=== PATIENT | male | born 1945 | race Caucasian/White ===

== ENCOUNTER 2021-01-25 18:46 | Emergency (ER) | payer MEDICARE, BC ==
[2021-01-25] MEDS ORDERED: Rocuronium 100 MG/10 ML MDV IVPUSH ONE (18:47)
[2021-01-25] MEDS ORDERED: Propofol 200 MG/20 ML SDV IV ONE (18:47)
[2021-01-25] MEDS ORDERED: Etomidate 2 MG/ML 20 ML SDV IVPUSH ONE (18:47)
--- NOTE | 2021-01-25 18:55 | EDM.PDOC ---
ED HPI GENERAL MEDICAL PROBLEM - General Chief Complaint: General Stated Complaint: AMBULANCE Time Seen by Provider: 01/25/21 18:50 Source of Information: Reports: Patient History Limitations: Reports: No Limitations - History of Present Illness INITIAL COMMENTS - FREE TEXT/NARRATIVE: 75 y/o M brought in by ems for episode of back pn by his kidneys, nausea, feeling flushed. Pt felt the urge to deficate and the had a bowel movement in his pants. Afterwards pt had immediate relief in symptoms. Prior to the incident the pt was eating dinner with his family. No trauma, denies fever, cough, chills, cp, abd pn, pelvic pn, extremity pn. Pt currently complaint free Abdominal Pain Score (Numeric/FACES): 6 - Related Data Allergies Allergy/AdvReac Type Severity Reaction Status Date / Time Penicillins Allergy Rash Verified 01/25/21 19:51 Home Meds: Home Meds . [Unable to Verify Home Med List] 06/18/14 [History] ED ROS GENERAL - Review of Systems Review Of Systems: Comprehensive ROS is negative, except as noted in HPI. ED EXAM, GENERAL - Physical Exam Exam: See Below Exam Limited By: No Limitations General Appearance: Alert, No Apparent Distress Nose: Normal Inspection, Normal Mucosa, No Blood Throat/Mouth: Normal Inspection, Normal Lips, Normal Teeth, Normal Gums, Normal Oropharynx, Normal Voice, No Airway Compromise Head: Atraumatic, Normocephalic Neck: Normal Inspection, Supple, Non-Tender, Full Range of Motion Respiratory/Chest: No Respiratory Distress, Lungs Clear, Normal Breath Sounds, No Accessory Muscle Use, Chest Non-Tender Cardiovascular: Normal Peripheral Pulses, Regular Rate, Rhythm, No Edema, No Gallop, No JVD, No Murmur, No Rub GI/Abdominal: Normal Bowel Sounds, Soft, Non-Tender, No Organomegaly, No Distention, No Abnormal Bruit, No Mass (Male) Exam: No Hernia, Normal Inspection, Normal Prostate, Circumcised Rectal (Males) Exam: Deferred Back Exam: Normal Inspection, Full Range of Motion Extremities: Normal Inspection, Normal Range of Motion, Non-Tender, Normal Capillary Refill, No Pedal Edema Neurological: Alert, Oriented, CN II-XII Intact, Normal Cognition, Normal Gait, Normal Reflexes, No Motor/Sensory Deficits Skin Exam: Warm, Dry, Intact #1 Interpretation EKG Date: 01/25/21 Time: 19:29 Rhythm: NSR [place]: Normal P-Wave: Present QRS: Other (ivcd) ST-T: Normal QT: Normal Course - Vital Signs Last Recorded V/S: Last Vital Signs Temp 96.9 F 01/25/21 18:50 Pulse 64 01/25/21 18:50 Resp 22 H 01/25/21 18:50 BP 140/86 01/25/21 18:50 Pulse Ox 97 01/25/21 18:50 - Orders/Labs/Meds Orders: Active Orders 24 hr Category Date Time Status Abdomen Pelvis w Cont [CT] Urgent Exams 01/25/21 19:46 Ordered UA RFX NYASIA AND CULT IF INDIC [URIN] Stat Lab 01/25/21 21:00 Ordered Potassium Chloride [KCL in Water 20 MEQ/100 ML] 20 meq Med 01/25/21 20:17 Active Premix Bag 1 bag IV ONETIME Medication Orders Potassium Chloride 20 meq/ (Premix) 100 mls @ 50 mls/hr IV ONETIME ONE Stop: 01/25/21 22:16 Last Admin: 01/25/21 20:47 Dose: 50 mls/hr Documented by: [email or web address] Labs: Laboratory Tests 01/25/21 01/25/21 01/25/21 Range/Units 19:28 19:28 19:28 WBC 10.1 H (5.0-10.0) 10^3/uL RBC 4.51 L (4.6-6.2) 10^6/uL Hgb 14.8 (14.0-18.0) g/dL Hct 41.5 (40.0-54.0) % MCV 92.0 (80-100) fL MCH 32.8 (27.0-34.0) pg MCHC 35.7 H (33.0-35.0) g/dL Plt Count 258 (150-450) 10^3/uL Neut % (Auto) 61.9 (42.2-75.2) % Lymph % (Auto) 22.6 (20.5-50.1) % [place] % (Auto) 12.6 H (2-8) % Eos % (Auto) 2.4 (1.0-3.0) % Baso % (Auto) 0.5 (0.0-1.0) % Sodium 132 L (136-145) mmol/L Potassium 2.8 L (3.5-5.1) mmol/L Chloride 94 L (98-107) mmol/L Carbon Dioxide 23 (21-32) mmol/L Anion Gap 17.8 H (7-13) mEq/L BUN 13 (7-18) mg/dL Creatinine 1.36 H (0.70-1.30) mg/dL Est Cr Clr Drug Dosing 48.45 mL/min Estimated GFR (MDRD) 51 BUN/Creatinine Ratio 9.6 (No establ ref range) Glucose 134 H (70-99) mg/dL Lactic Acid (0.4-2.0) mmol/L Calcium 9.0 (8.5-10.1) mg/dL Magnesium 1.4 L (1.8-2.4) mg/dL Total Bilirubin 0.5 (0.2-1.0) mg/dL AST 19 (15-37) U/L ALT 28 (16-63) U/L Alkaline Phosphatase 113 (46-116) U/L Troponin I High Sens (<=76) pg/mL C-Reactive Protein < 0.2 (0.0-0.9) mg/dL B-Natriuretic Peptide 111 H (0-100) pg/ml Total Protein 7.9 (6.4-8.2) g/dL Albumin 4.3 (3.4-5.0) g/dL Globulin 3.6 Albumin/Globulin Ratio 1.2 Amylase (25-115) U/L Lipase (73-393) U/L TSH, Ultra Sensitive 2.23 (0.36-3.74) uIU/mL SARS-CoV-2 RNA (JAGDISH) (NEGATIVE) 01/25/21 01/25/21 01/25/21 Range/Units 19:28 19:28 19:28 WBC (5.0-10.0) 10^3/uL RBC (4.6-6.2) 10^6/uL Hgb (14.0-18.0) g/dL Hct (40.0-54.0) % MCV (80-100) fL MCH (27.0-34.0) pg MCHC (33.0-35.0) g/dL Plt Count (150-450) 10^3/uL Neut % (Auto) (42.2-75.2) % Lymph % (Auto) (20.5-50.1) % [place] % (Auto) (2-8) % Eos % (Auto) (1.0-3.0) % Baso % (Auto) (0.0-1.0) % Sodium (136-145) mmol/L Potassium (3.5-5.1) mmol/L Chloride (98-107) mmol/L Carbon Dioxide (21-32) mmol/L Anion Gap (7-13) mEq/L BUN (7-18) mg/dL Creatinine (0.70-1.30) mg/dL Est Cr Clr Drug Dosing mL/min Estimated GFR (MDRD) BUN/Creatinine Ratio (No establ ref range) Glucose (70-99) mg/dL Lactic Acid 2.0 (0.4-2.0) mmol/L Calcium (8.5-10.1) mg/dL Magnesium (1.8-2.4) mg/dL Total Bilirubin (0.2-1.0) mg/dL AST (15-37) U/L ALT (16-63) U/L Alkaline Phosphatase (46-116) U/L Troponin I High Sens 9 (<=76) pg/mL C-Reactive Protein (0.0-0.9) mg/dL B-Natriuretic Peptide (0-100) pg/ml Total Protein (6.4-8.2) g/dL Albumin (3.4-5.0) g/dL Globulin Albumin/Globulin Ratio Amylase 54 (25-115) U/L Lipase 278 (73-393) U/L TSH, Ultra Sensitive (0.36-3.74) uIU/mL SARS-CoV-2 RNA (JAGDISH) (NEGATIVE) 01/25/21 Range/Units 19:29 WBC (5.0-10.0) 10^3/uL RBC (4.6-6.2) 10^6/uL Hgb (14.0-18.0) g/dL Hct (40.0-54.0) % MCV (80-100) fL MCH (27.0-34.0) pg MCHC (33.0-35.0) g/dL Plt Count (150-450) 10^3/uL Neut % (Auto) (42.2-75.2) % Lymph % (Auto) (20.5-50.1) % [place] % (Auto) (2-8) % Eos % (Auto) (1.0-3.0) % Baso % (Auto) (0.0-1.0) % Sodium (136-145) mmol/L Potassium (3.5-5.1) mmol/L Chloride (98-107) mmol/L Carbon Dioxide (21-32) mmol/L Anion Gap (7-13) mEq/L BUN (7-18) mg/dL Creatinine (0.70-1.30) mg/dL Est Cr Clr Drug Dosing mL/min Estimated GFR (MDRD) BUN/Creatinine Ratio (No establ ref range) Glucose (70-99) mg/dL Lactic Acid (0.4-2.0) mmol/L Calcium (8.5-10.1) mg/dL Magnesium (1.8-2.4) mg/dL Total Bilirubin (0.2-1.0) mg/dL AST (15-37) U/L ALT (16-63) U/L Alkaline Phosphatase (46-116) U/L Troponin I High Sens (<=76) pg/mL C-Reactive Protein (0.0-0.9) mg/dL B-Natriuretic Peptide (0-100) pg/ml Total Protein (6.4-8.2) g/dL Albumin (3.4-5.0) g/dL Globulin Albumin/Globulin Ratio Amylase (25-115) U/L Lipase (73-393) U/L TSH, Ultra Sensitive (0.36-3.74) uIU/mL SARS-CoV-2 RNA (JAGDISH) Negative (NEGATIVE) Meds: Medications Generic Name Dose Route Start Last Admin Trade Name Freq PRN Reason Stop Dose Admin Potassium Chloride 20 meq/ 100 mls @ 50 mls/hr 01/25/21 20:17 01/25/21 20:47 Premix IV 01/25/21 22:16 50 mls/hr ONETIME ONE Administration Discontinued Medications Generic Name Dose Route Start Last Admin Trade Name Freq PRN Reason Stop Dose Admin Sodium Chloride 1,000 mls @ 999 mls/hr 01/25/21 19:22 01/25/21 19:30 Normal Saline IV 01/25/21 20:22 999 mls/hr .BOLUS ONE Administration Iopamidol 100 ml 01/25/21 19:47 Iopamidol 612 Mg/Ml 100 Ml Bottle IVPUSH 01/25/21 19:48 ONETIME ONE Lorazepam Confirm 01/25/21 19:43 01/25/21 20:48 Lorazepam 2 Mg/Ml Sdv Administered 01/25/21 19:44 2 mg Dose Administration 2 mg .ROUTE .STK-MED ONE Metoclopramide HCl 10 mg 01/25/21 19:21 01/25/21 19:32 Metoclopramide 10 Mg/2 Ml Sdv IVPUSH 01/25/21 19:22 10 mg ONETIME ONE Administration Ondansetron HCl 4 mg 01/25/21 19:12 01/25/21 19:36 Ondansetron 4 Mg/2 Ml Sdv IVPUSH 01/25/21 19:13 4 mg ONETIME ONE Administration - Re-Assessments/Exams Free Text/Narrative Re-Assessment/Exam: 01/25/21 20:30 Pt had a 3-5 min seizure tonic clonic activity shortly after arriving here. He became cyanotic and developed sonorous resp. The seizure ceased after 2mg ativan IV. The pt continued to have sonorous resp and not maintain his airway for 15 min after the seizure. The pt also developed a leftward gaze with pinpoint pupils. I intubated the pt 8.0 tube 24 at the teeth. RSI meds included 30mg etomidate and 90mg Rocuronium. Tube placement was confirmed via etco2 and cxr and positive lung sounds with no epigastric sounds. 01/25/21 20:34 Transfer initiated around 2000hrs No beds at [facility], [facility] 01/25/21 21:[address] Pham resident services director. He accepted the pt for transfer and will continue his care at his facility. Family is now with the pt and have been notified of all findings and pending transfer. Departure - Departure Time of Disposition: 21:26 Disposition: DC/Tfer to Acute Hospital 02 Condition: Serious Clinical Impression: Seizure, Glioblastoma - Discharge Information *PRESCRIPTION DRUG MONITORING PROGRAM REVIEWED*: Not Applicable *COPY OF PRESCRIPTION DRUG MONITORING REPORT IN PATIENT BRIDGETT: Not Applicable Forms: ED Department Discharge, Interfacility Transfer INDERJIT Sepsis Event Note (ED) - Focused Exam Vital Signs: Vital Signs Temp Pulse Pulse Resp BP Pulse Ox 01/25/21 18:50 96.9 F 64 22 H 140/86 97 01/25/21 18:39 98 F 81 18 161/68 H 95 - My Orders Last 24 Hours: My Active Orders 01/25/21 19:46 Abdomen Pelvis w Cont [CT] Urgent 01/25/21 20:17 Potassium Chloride [KCL in Water 20 MEQ/100 ML] 20 meq Premix Bag 1 bag IV ONETIME - Assessment/Plan Last 24 Hours: My Active Orders 01/25/21 19:46 Abdomen Pelvis w Cont [CT] Urgent 01/25/21 20:17 Potassium Chloride [KCL in Water 20 MEQ/100 ML] 20 meq Premix Bag 1 bag IV ONETIME
[2021-01-25] MEDS ORDERED: Ondansetron 4 MG/2 ML SDV IVPUSH ONE (19:12)
[2021-01-25] MEDS ORDERED: Metoclopramide 10 MG/2 ML SDV IVPUSH ONE (19:21)
[2021-01-25] MEDS ORDERED: Sodium Chloride 0.9% 1,000 ML IV ONE (19:22)
[2021-01-25 19:27] VITALS: BP 140/86; PULSE 64
[2021-01-25] MEDS ORDERED: LORazepam 2 MG/ML SDV ONE (19:43)
[2021-01-25] MEDS ORDERED: Iopamidol 612 MG/ML 100 ML Bottle IVPUSH ONE (19:47)
[2021-01-25 20:08] LABS: ANION GAP 17.8 mEq/L (7-13); CHLORIDE,CL 94 mmol/L (98-107); SODIUM,NA 132 mmol/L (136-145)
[2021-01-25] MEDS ORDERED: Potassium Chloride 20 MEQ in Premix Bag 1 BAG IV ONE (20:17)
--- NOTE | 2021-01-25 20:49 | CT ---
PROCEDURE INFORMATION: Exam: CT Head Without Contrast Exam date and time: 01/25/2021 8:35 PM Age: 75 years old Clinical indication: Other: Seizure; Prior surgery; Surgery date: 6+ months; Patient HX: HX brain CA; Additional info: Seizure, burning R lower abd pn TECHNIQUE: Imaging protocol: Computed tomography of the head without contrast. Radiation optimization: All CT scans at this facility use at least one of these dose optimization techniques: automated exposure control; mA and/or kV adjustment per patient size (includes targeted exams where dose is matched to clinical indication); or iterative reconstruction. Other technique: STROKE PROTOCOL was implemented. 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 Age-related atrophy and chronic white matter ischemic changes, with no evidence of an acute intracranial abnormality. No hemorrhage, mass effect or midline shift. Cerebral ventricles: The ventricular system demonstrates mild diffuse compensatory enlargement. Paranasal sinuses: Visualized sinuses are unremarkable. No fluid levels. Mastoid air cells: Visualized mastoid air cells are well aerated. Bones/joints: Status post prior right occipital craniotomy. Soft tissues: No acute changes IMPRESSION: 1. 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 2. Age-related atrophy and chronic white matter ischemic changes, with no evidence of an acute intracranial abnormality. 3. No hemorrhage, mass effect or midline shift. ASSESSMENT: ASPECTS ([place] Stroke Program Early CT Score) is 10.
--- NOTE | 2021-01-25 20:51 | CR ---
PROCEDURE INFORMATION: Exam: XR Chest Exam date and time: 01/25/2021 8:17 PM Age: 75 years old Clinical indication: Device placement; Ett placement (vent status); Additional info: Intubation confirmation TECHNIQUE: Imaging protocol: XR of the chest. Views: 1 view. COMPARISON: No relevant prior studies available. FINDINGS: Tubes, catheters and devices: Endotracheal tube is in place with the tip 3.1 cm above the level of the saeed. Lungs: Bilateral hyperinflation is present. Atelectatic changes noted within both lung bases. Pleural spaces: Unremarkable. No pleural effusion. No pneumothorax. Heart/Mediastinum: Unremarkable. No cardiomegaly. Bones/joints: Unremarkable. IMPRESSION: 1. Endotracheal tube is in place with the tip 3.1 cm above the level of the saeed. 2. Bilateral hyperinflation is present. 3. Atelectatic changes noted within both lung bases.
[2021-01-25] MEDS ORDERED: LORazepam 2 MG/ML SDV IVPUSH ONE (22:01)
[2021-01-25] MEDS ORDERED: Flumazenil 0.1 MG/ML 5 ML MDV IVPUSH PRN (22:01)
== END 2021-01-25 21:45 ==
LOC: DL.ED 18:46
DX: C71.9 Malignant neoplasm of brain, unspecified (principal); R56.9 Unspecified convulsions; Z88.0 Allergy status to penicillin; Z20.822 Contact with and (suspected) exposure to COVID-19
CPT/HCPCS: 31500; 36415; 43752; 51702; 70450; 71045; 80053; 81001; 82150; 83605; 83690; 83735; 83880; 84443; 84484; 85025; 86140; 87086; 87088; 87186; 93005; 96365; 96375; 99285; J2060; J2405; J2704; J2765; J3480; J3490; J7030; U0002

== ENCOUNTER 2021-03-25 09:26 | Emergency (ER) | payer MEDICARE, BC ==
[2021-03-25] MEDS ORDERED: Aspirin 81 MG Tab.Chew PO ONE (09:32)
--- NOTE | 2021-03-25 09:37 | EDM.PDOC ---
ED HPI GENERAL MEDICAL PROBLEM - General Stated Complaint: SEVERE CHEST PAIN Time Seen by Provider: 03/25/21 09:33 Source of Information: Reports: Patient History Limitations: Reports: No Limitations - History of Present Illness INITIAL COMMENTS - FREE TEXT/NARRATIVE: This 75 yo male patient reports to the ED with chest pain. The patient reports his symptoms started about 10 minutes prior to arrival. The patient states his pain is in the middle of his chest, but does not radiate from that spot. The patient reports his initial pain was rated at a 6/10. At the time of examination, the patient rated his pain at a 4/10. The patient reports he did take 1 aspirin (81 mg) about 25 minutes prior to arrival. The patient denies any shortness of breath with this episode of chest pain. Onset: Today Duration: Minutes: (10), Constant, Improving Location: Reports: Chest Quality: Reports: Ache, Dull Severity: Moderate Improves with: Reports: None Worsens with: Reports: None Context: Reports: Other Associated Symptoms: Reports: Chest Pain Sternum Pain Score (Numeric/FACES): 4 - Related Data Allergies Allergy/AdvReac Type Severity Reaction Status Date / Time Penicillins Allergy Rash Verified 03/25/21 09:42 Home Meds: Home Meds Benazepril [Lotensin] 20 mg PO DAILY 03/25/21 [History] Finasteride 10 mg PO DAILY 03/25/21 [History] Furosemide 40 mg PO DAILY 03/25/21 [History] Gabapentin [Neurontin] 300 mg PO BID 03/25/21 [History] Metoprolol Succinate [Toprol XL] 25 mg PO DAILY 03/25/21 [History] Pantoprazole [ProTONIX] 40 mg PO DAILY 03/25/21 [History] Potassium Chloride [Klor-Con 10] 10 meq PO DAILY 03/25/21 [History] Prochlorperazine [Compazine] 10 mg PO DAILY 03/25/21 [History] Tamsulosin HCl 0.4 mg PO BEDTIME 03/25/21 [History] amLODIPine [Norvasc] 5 mg PO DAILY 03/25/21 [History] atorvaSTATin [Lipitor] 40 mg PO BEDTIME 03/25/21 [History] levETIRAcetam [Levetiracetam] 1,000 mg PO BID 03/25/21 [History] ED ROS GENERAL - Review of Systems Review Of Systems: Comprehensive ROS is negative, except as noted in HPI. ED EXAM, GENERAL - Physical Exam Exam: See Below Exam Limited By: No Limitations General Appearance: Alert, WD/WN, Mild Distress Eye Exam: Bilateral Eye: EOMI, Normal Inspection, PERRL Ears: Normal External Exam, Normal Canal, Hearing Grossly Normal, Normal TMs Nose: Normal Inspection, Normal Mucosa, No Blood Throat/Mouth: Normal Inspection, Normal Lips, Normal Teeth, Normal Gums, Normal Oropharynx, Normal Voice, No Airway Compromise Head: Atraumatic, Normocephalic Neck: Normal Inspection, Supple, Non-Tender, Full Range of Motion Respiratory/Chest: No Respiratory Distress, Lungs Clear, Normal Breath Sounds, No Accessory Muscle Use, Chest Non-Tender Cardiovascular: Normal Peripheral Pulses, No Edema, No Gallop, No JVD, No Murmur, No Rub, Other (Regularly irregular) GI/Abdominal: Normal Bowel Sounds, Soft, Non-Tender, No Organomegaly, No Distention, No Abnormal Bruit, No Mass (Male) Exam: Deferred Rectal (Males) Exam: Deferred Back Exam: Normal Inspection, Full Range of Motion, NT Extremities: Normal Inspection, Normal Range of Motion, Non-Tender, Normal Capillary Refill, No Pedal Edema Neurological: Alert, Oriented, CN II-XII Intact, Normal Cognition, Normal Gait, Normal Reflexes, No Motor/Sensory Deficits Psychiatric: Normal Affect, Normal Mood Skin Exam: Warm, Dry, Intact, Normal Color, No Rash Lymphatic: No Adenopathy #1 Interpretation EKG Date: 03/25/21 Time: 09:38 Rhythm: Other (Second degree type 1) [place]: Normal P-Wave: Present QRS: Normal QT: Normal Comparison: Change From Previous EKG Course - Vital Signs Last Recorded V/S: Last Vital Signs Temp 98.0 F 03/25/21 09:36 Pulse 63 03/25/21 09:36 Resp 20 03/25/21 09:36 BP 170/66 H 03/25/21 09:36 Pulse Ox 96 03/25/21 09:36 - Orders/Labs/Meds Labs: Laboratory Tests 03/25/21 03/25/21 03/25/21 Range/Units 09:40 09:40 09:40 WBC 11.2 H (5.0-10.0) 10^3/uL RBC 4.69 (4.6-6.2) 10^6/uL Hgb 14.7 (14.0-18.0) g/dL Hct 41.8 (40.0-54.0) % MCV 89.1 (80-100) fL MCH 31.3 (27.0-34.0) pg MCHC 35.2 H (33.0-35.0) g/dL Plt Count 185 (150-450) 10^3/uL Neut % (Auto) 60.2 (42.2-75.2) % Lymph % (Auto) 17.9 L (20.5-50.1) % [place] % (Auto) 14.9 H (2-8) % Eos % (Auto) 6.3 H (1.0-3.0) % Baso % (Auto) 0.7 (0.0-1.0) % PT 9.9 (9.0-12.0) SEC INR 1.0 (0.9-1.2) D-Dimer, Quantitative 728 H (0-400) ng/mL Sodium 137 (136-145) mmol/L Potassium 3.5 (3.5-5.1) mmol/L Chloride 101 (98-107) mmol/L Carbon Dioxide 24 (21-32) mmol/L Anion Gap 15.5 H (7-13) mEq/L BUN 11 (7-18) mg/dL Creatinine 1.31 H (0.70-1.30) mg/dL Est Cr Clr Drug Dosing 48.76 mL/min Estimated GFR (MDRD) 53 BUN/Creatinine Ratio 8.4 (No establ ref range) Glucose 103 H (70-99) mg/dL Lactic Acid (0.4-2.0) mmol/L Calcium 8.6 (8.5-10.1) mg/dL Total Bilirubin 0.8 (0.2-1.0) mg/dL AST 23 (15-37) U/L ALT 35 (16-63) U/L Alkaline Phosphatase 118 H (46-116) U/L Troponin I High Sens 11 (<=76) pg/mL Total Protein 6.9 (6.4-8.2) g/dL Albumin 3.5 (3.4-5.0) g/dL Globulin 3.4 Albumin/Globulin Ratio 1.0 03/25/21 03/25/21 Range/Units 09:40 11:45 WBC (5.0-10.0) 10^3/uL RBC (4.6-6.2) 10^6/uL Hgb (14.0-18.0) g/dL Hct (40.0-54.0) % MCV (80-100) fL MCH (27.0-34.0) pg MCHC (33.0-35.0) g/dL Plt Count (150-450) 10^3/uL Neut % (Auto) (42.2-75.2) % Lymph % (Auto) (20.5-50.1) % [place] % (Auto) (2-8) % Eos % (Auto) (1.0-3.0) % Baso % (Auto) (0.0-1.0) % PT (9.0-12.0) SEC INR (0.9-1.2) D-Dimer, Quantitative (0-400) ng/mL Sodium (136-145) mmol/L Potassium (3.5-5.1) mmol/L Chloride (98-107) mmol/L Carbon Dioxide (21-32) mmol/L Anion Gap (7-13) mEq/L BUN (7-18) mg/dL Creatinine (0.70-1.30) mg/dL Est Cr Clr Drug Dosing mL/min Estimated GFR (MDRD) BUN/Creatinine Ratio (No establ ref range) Glucose (70-99) mg/dL Lactic Acid 1.3 (0.4-2.0) mmol/L Calcium (8.5-10.1) mg/dL Total Bilirubin (0.2-1.0) mg/dL AST (15-37) U/L ALT (16-63) U/L Alkaline Phosphatase (46-116) U/L Troponin I High Sens 12 (<=76) pg/mL Total Protein (6.4-8.2) g/dL Albumin (3.4-5.0) g/dL Globulin Albumin/Globulin Ratio Meds: Medications Discontinued Medications Generic Name Dose Route Start Last Admin Trade Name Freq PRN Reason Stop Dose Admin Aspirin 243 mg 03/25/21 09:32 03/25/21 09:35 Aspirin 81 Mg Tab.Chew PO 03/25/21 09:33 243 mg ONETIME ONE Administration - Re-Assessments/Exams Free Text/Narrative Re-Assessment/Exam: 03/25/21 09:53 The patient reports his chest pain was gone during follow-up examination. Departure - Departure Time of Disposition: 12:34 Disposition: Home, Self-Care 01 Condition: Fair Clinical Impression: Nonspecific chest pain Instructions: Nonspecific Chest Pain, Adult, [id number] Forms: ED Department Discharge Care Plan Goals: The patient was advised of the examination, lab, EKG and x-ray results during the visit. The patient was given an oral dose of aspirin while in the ED. The patient was encouraged to follow-up with his primary care facility for continued evaluation and treatment. If the patient has any additional symptoms or concerns, the patient should either return to his primary care facility or visit the ED. Sepsis Event Note (ED) - Focused Exam Vital Signs: Vital Signs Temp Pulse Resp BP Pulse Ox 03/25/21 09:36 98.0 F 63 20 170/66 H 96
[2021-03-25 09:42] VITALS: BP 170/66; PULSE 63
--- NOTE | 2021-03-25 10:01 | CR ---
PROCEDURE INFORMATION: Exam: XR Chest Exam date and time: 03/25/2021 9:33 AM Age: 75 years old Clinical indication: Other: Chest pain TECHNIQUE: Imaging protocol: XR of the chest. Views: 1 view. COMPARISON: CR Chest 1V Frontal 01/25/2021 8:17 PM FINDINGS: Lungs: The lungs are normally expanded and clear. Pleural spaces: Normal. Heart/Mediastinum: Chronic unchanged cardiomegaly. Vasculature: Vascular calcification at the level of the aortic knob. The vessels have normal caliber. Bones/joints: Intact and normally aligned. No suspicious lesion. IMPRESSION: No acute disease. Incidentally noted mild cardiomegaly and aortosclerosis.
[2021-03-25 10:08] LABS: ANION GAP 15.5 mEq/L (7-13)
== END 2021-03-25 12:46 | disposition home or self-care (01) ==
LOC: DL.ED 09:26
DX: R07.9 Chest pain, unspecified (principal); Z88.0 Allergy status to penicillin; Z79.899 Other long term (current) drug therapy
CPT/HCPCS: 36415; 71045; 80053; 83605; 84484; 85025; 85379; 85610; 93005; 99285-25; A9270-GY

== ENCOUNTER 2021-05-30 06:38 | Emergency (ER) | payer MEDICARE, BC | END 2021-05-30 07:07 | disposition left against medical advice (07) | LOC: DL.ED 06:38 | DX: Z53.21 Procedure and treatment not carried out due to patient leaving prior to being seen by health care provider (principal) ==